=== PATIENT | female | born 1985 | race Caucasian/White ===

== ENCOUNTER 2016-10-29 14:15 | Observation (INO) | payer BC ==
[2016-10-29 15:10] LABS: COLOR PALE YELLOW; LEUKOCYTE ESTERASE,URINE NEGATIVE (NEGATIVE); NITRITE,URINE NEGATIVE (NEGATIVE)
--- NOTE | 2016-10-29 15:28 | OBPROG ---
OBG Labor Progress Note Assessment/Plan: Assessment:continuous monitoring irregular contractions cat1 dry perineum no noted leaking of fluid not wearing a pad on admit objective amnisure negative nitrazine negative pooling negative ferning negative Plan:speculum exam ferning, pooling, nitrazine amnisure, ua and culture, hydrate orally. 10/29/16 15:22 Subjective: Comes in with complaint of leaking fluid . Feeling like I am peeing all the time. States feeling movement. Denies bleeding, denies cramping. - SVE Dilation (cm): 0 Effacement (%): Less than 50 Station: -3 - Physical Exam General Appearance: WD/WN, alert, no apparent distress Respiratory: chest non-tender, lungs clear, normal breath sounds Cardiac/Chest: regular rate, rhythm Abdomen: normal bowel sounds Extremities: normal range of motion DTR- Lower Extremities: Knee (R): 1+, Knee (L): 1+ (no clonus) Skin: normal color, warm/dry Neuro/Psych: no motor/sensory deficits, alert, normal mood/affect, oriented x 3 ICD10 Worksheet Patient Problems: Problems Problem Status Onset ro rom Acute
--- NOTE | 2016-10-29 15:59 | GHP ---
[f rep st] HISTORY AND PHYSICAL DATE OF ADMISSION: 10/29/2016 HISTORY OF PRESENT ILLNESS: The patient is a 31-year-old, 2, para 1, with an EDC of 017, who comes in today with complaint of leaking fluid. "I don't know if I'm peeing myself, I don' t know what happened, so we felt we should just come in." States the baby is moving. Denies bleedi ng. Denies cramping. The patient was a late transfer of care at 23+ [address] to [facility] and has been routinely seen since then. MEDICAL HISTORY: History of pyelonephritis, chronic renal disease, right kidney was not working wel l between ages of 18 and 19, a right bad knee. PREVIOUS HISTORY: On 12/17/2014, a male, 8 pounds, 8 ounces, 41 weeks, 10 hours of labor vaginally. The patient had an epidural. GYNECOLOGICAL HISTORY: History of OCP use. History of a previous yeast infection. FAMILY HISTORY: Noncontributory. SOCIAL HISTORY: Patient is , has another child. A nonsmoker and denies drug use. PRESENT HISTORY: Complaint of possible rupture of membranes today, or maybe "I peed mysel f," per patient. PHYSICAL EXAMINATION: GENERAL: The patient is awake, alert, oriented x3. LUNGS: Clear bilaterall y. ABDOMEN: Bowel sounds are positive in all 4 quadrants. EXTREMITIES: DTRs are 1+ bilaterally. Homans sign is negative bilaterally. GENITOURINARY: On palpation, uterus is soft. Contractions a re noted irregularly on the monitor. With examination of perineum, no fluid is noted. Speculum exa m, no pooling, negative Nitrazine, negative ferning. AmniSure was sent with a negative result. PLAN OF CARE: Discharge to home with followup in the office. Patient understands plan of care. Wi th leaking, bleeding, cramping, patient will return for reassessment. The patient was also given a liter of fluid and contractions went away while monitoring. The patient verbalized understanding of discharge instructions and will return for planned appointment with [facility]. /[id number]/MODL
== END 2016-10-29 15:30 | disposition home or self-care (01) ==
LOC: FLD 14:15
PROVIDERS: ADMIT Advanced Practice Midwife; ATTEND Advanced Practice Midwife
DX: Z03.89 Encounter for observation for other suspected diseases and conditions ruled out (principal); Z3A.32 32 weeks gestation of pregnancy
CPT/HCPCS: G0378 ×2

== ENCOUNTER 2016-11-17 17:54 | Observation (INO) | payer BC ==
[2016-11-17 18:01] VITALS: RESP 16
--- NOTE | 2016-11-17 18:11 | EDPHY ---
H & P Time Seen by Provider: 11/17/16 18:10 Smoking Status: Never smoked Constitutional: Initial Vital Signs Temperature (C) 36.4 C 11/17/16 17:56 Heart Rate 80 11/17/16 17:56 Respiratory Rate 16 11/17/16 17:56 Blood Pressure 114/78 11/17/16 17:56 O2 Sat (%) 97 11/17/16 17:56 O2 Delivery Mode Room Air Allergies/Adverse Reactions: No Known Allergies Allergy (Verified 11/17/16 17:56) Home Medications: Medication Instructions Recorded NK [No Known Home Meds] 11/17/16 MDM/Departure - Depart Referrals: Subha Rincon CNM [Primary Care Provider] - As per Instructions
[2016-11-17 19:10] VITALS: PULSE 88
[2016-11-17 19:13] VITALS: BP 130/69; TEMP 97.7; O2SAT 98
--- NOTE | 2016-11-17 19:17 | EDPHY ---
H & P Stated Complaint: fell in shower/twisting r knee pt is 8months / Source: Patient Exam Limitations: No limitations - Personal History LMP (Females 10-55): Current Tetanus/Diphtheria Vaccine: Yes - Medical/Surgical History Hx Asthma: No Hx Chronic Respiratory Disease: No Hx Diabetes: No Hx Cardiac Disease: No Hx Renal Disease: No Hx Cirrhosis: No Hx Alcoholism: No Hx HIV/AIDS: No Hx Splenectomy or Spleen Trauma: No Other PMH: NONE - Social History Smoking Status: Never smoked <Tierra Griffin - Last Filed: 11/17/16 21:17> <Mima Jorgensen - Last Filed: 11/17/16 23:36> Time Seen by Provider: 11/17/16 18:10 HPI/ROS: CHIEF COMPLAINT: slip and fall HISTORY OF PRESENT ILLNESS: 31-year-old female presents emergency department after she slipped and fell while taking a shower at the swimming pool holding her 2-year-old son. Patient is 8 months . She reports she twisted her right knee and landed on the right side of her abdomen. She reports she has been unable to bear weight on this knee due to pain, she denies abdominal pain though is concerned she does not feel much movement. She denies vaginal bleeding. Patient denies head strike, no neck pain, no other complaints. Patient reports previous ligamentous injury to this right knee a few years ago. REVIEW OF SYSTEMS: A comprehensive 10 point review of systems is otherwise negative aside from elements mentioned in the history of present illness. (Tierra Griffin) - Physical Exam Exam: Physical Exam Gen: Alert and Oriented, NAD HEENT: PERRL, moist mucous membranes NECK: no meningismus CV: regular rate and regular rhythm PULM: CTAB, no wheezes ABDOMEN: Gravid uterus, nontender, no ecchymosis, heart tones 144 BACK: No CVA tenderness NEURO: Neurologically grossly intact EXTREMITIES: Right knee with diffuse effusion, positive Sheela's, positive anterior drawer, 2+ pedal pulses, sensation intact to light touch SKIN: no rash or break in skin on exposed skin PSYCH: answers questions appropriately. (Tierra Griffin) Constitutional: Initial Vital Signs Temperature (C) 36.4 C 11/17/16 17:56 Heart Rate 80 11/17/16 17:56 Respiratory Rate 16 11/17/16 17:56 Blood Pressure 114/78 11/17/16 17:56 O2 Sat (%) 97 11/17/16 17:56 O2 Delivery Mode Room Air Allergies/Adverse Reactions: No Known Allergies Allergy (Verified 11/17/16 17:56) Home Medications: Medication Instructions Recorded IRON 1 tab PO DAILY 11/17/16 1 tab PO DAILY 11/17/16 Medical Decision Making <Tierra Griffin - Last Filed: 11/17/16 21:17> <Mima Jorgensen - Last Filed: 11/17/16 23:36> - Diagnostics Imaging Results: Imaging Impressions Knee X-Ray 11/17/16 18:10 Impression: Negative for definite acute fracture. Findings suggest possible internal derangement with consideration for MR if symptoms persist. ED Course/Re-evaluation: heart tones are 144, patient has no vaginal bleeding, she has no abdominal pain. Right knee x-ray shows effusion, no acute fractures. Exam consistent with ACL tear. Patient has been placed in a knee immobilizer and given crutches, she is sent up to Labor and delivery for further OB monitoring. Dr. Jorgensen has performed a bedside ultrasound. (Tierra Griffin) Differential Diagnosis: The differential diagnosis for the patient's trauma included but was not limited to long bone and pelvic bone fractures, spinal injury, intra-abdominal injury, and intra-thoracic injury. (Tierra Griffin) Other Provider: The patient was initially seen and evaluated by PA with the complaint of Knee pain. Patient slipped in the shower and injured her knee. Of concern, the patient is 8 months and also fell onto her abdomen.. Please see their dictation for complete details. I reviewed the database, medical/surgical history, and ED course. Procedure: A limited transabdominal ultrasound was performed on this patient. The indication for the study was blunt abdominal trauma in a patient greater than 20 weeks . On the examination I found that there was a single living IUP with good cardiac activity, rate in the 140s, and positive movement. I did not see a significant amount of free fluid in the pelvis. Results of the exam: Single living 8 months gestation status post blunt trauma to the abdomen. Images were saved on the ultrasound database. The examination was performed and interpreted by myself. The midlevel and I discussed the care, treatment, and disposition of the patient. Patient's knee x-ray demonstrated significant effusion. She was transferred to Labor and delivery for monitoring of her . Please see the discharge instructions with regard information regarding her knee injury. ( Mima Jorgensen) Departure <Tierra Griffin - Last Filed: 11/17/16 21:17> <Mima Jorgensen - Last Filed: 11/17/16 23:36> - Departure Disposition: Home, Routine, Self-Care Clinical Impression: Traumatic injury during in third trimester Right knee sprain Qualifiers: Encounter type: initial encounter Involved ligament of knee: anterior cruciate ligament Qualified Code(s): S83.511A - Sprain of anterior cruciate ligament of right knee, initial encounter Condition: Good Report Scribed for: Mima Jorgensen Report Scribed by: Deisy Bennett Date of Report: 11/17/16 Time of Report: 21:24 <Mima Jorgensen - Last Filed: 11/17/16 23:36>
[2016-11-17] MEDS ORDERED: HYDROCODONE/APAP 5/325 TAB PO ONE (19:53)
--- NOTE | 2016-11-17 20:42 | GHP ---
[f rep st] HISTORY AND PHYSICAL DATE OF ADMISSION: 11/17/2016 ADMISSION DIAGNOSIS: 1. Intrauterine at 34 and 6/7th weeks gestation. 2. Fall. HISTORY OF PRESENT ILLNESS: The patient is a 31-year-old 2, para 1-0-0-1, who is 34 and 6/7 th weeks gestation. She was at the pool with her toddler and slipped in the shower and landed on he r arm, twisted her knee and hit her abdomen. The patient was evaluated in the emergency room for th e knee and it was put in a brace. Her pain overall is controlled; however, she is uncomfortable. S he denies feeling any abdominal pain. She denies any loss of fluid or vaginal bleeding. There is g ood movement. Her abdomen is gravid, nontender. Extremities reveal no calf tenderness. She does have her right leg in a brace. status is category 1. She is not having any contractions . LABORATORY DATA: Her blood type is AB positive. A Kleihauer-Betke was drawn. PLAN: The patient will be monitored for the next 6 to 8 hours, longer if indicated. Her abdomen is gravid, but nontender. We discussed labor precautions, precautions, kick counts and abrupt ion precautions. The patient has a followup appointment in our office next week. She will also be given a prescription for a few Buchtel tablets in case her knee pain significantly increases as she is not a candidate to take ibuprofen. /[id number]/MODL
[2016-11-17] MEDS ORDERED: HYDROCODONE/APAP 5/325 TAB PO PRN (22:23)
== END 2016-11-18 00:40 | disposition home or self-care (01) ==
LOC: FLD 19:15
PROVIDERS: ADMIT Obstetrics & Gynecology; ATTEND Obstetrics & Gynecology
DX: O9A.213 Injury, poisoning and certain other consequences of external causes complicating pregnancy, third trimester (principal); S83.511A Sprain of anterior cruciate ligament of right knee, initial encounter; Z3A.34 34 weeks gestation of pregnancy; W01.0XXA Fall on same level from slipping, tripping and stumbling without subsequent striking against object, initial encounter; Y93.E1 Activity, personal bathing and showering; Y92.34 Swimming pool (public) as the place of occurrence of the external cause
CPT/HCPCS: 29505; 73564; 99285; G0378; L1830

== ENCOUNTER 2016-12-01 14:10 | Observation (INO) | payer BC ==
[2016-12-01] MEDS ORDERED: LR 1,000 ML IV PRN (15:20)
[2016-12-01] MEDS ORDERED: OXYTOCIN/RINGERS LACTATE 1,000 ML IV PRN (15:20)
[2016-12-01] MEDS ORDERED: EPSOM SALT 454 GM TP PRN (15:20)
[2016-12-01] MEDS ORDERED: TERBUTALINE SULFATE 1 MG/ML VIAL IV PRN (15:20)
[2016-12-01] MEDS ORDERED: IBUPROFEN 600 MG TAB PO PRN (15:20)
[2016-12-01] MEDS ORDERED: OLIVE OIL 118 ML BTL MISC PRN (15:20)
--- NOTE | 2016-12-01 18:43 | GHP ---
[f rep st] PREOP HISTORY AND PHYSICAL DATE OF ADMISSION: 12/01/2016 OBSERVATION NOTE PRESENTATION DIAGNOSIS: Intrauterine at 36 and 5/7 weeks' gestation with contractions. HISTORY OF PRESENT ILLNESS: The patient is a 31-year-old 2, para 1-0-0-1, with an unsure la st menstrual period but an EDC of 12/24/2016, which was confirmed by a 13-week ultrasound. She has had good care at [facility] since transfer at 23 weeks. She moved from [facility], and she has no significant risk factors. The patient began feeling increased contrac tions over the course of the day on the . They developed into a regular pattern, every 3-4 minut es, were increasing in intensity, and mostly in her back, and she needed to walk through them. She denied leakage of fluid, vaginal bleeding, and she had good movement. When she presented to [facility] and Delivery, heart tones were at 130s, reactive, moderate variability, category 1. She was aidan every 2-3 minutes. Initial cervical exam was fingertip, 50%, very high, and posteri or. The patient was given aggressive p.o. hydration and careful monitoring, and hydrotherapy. Over several hours, cervical exam did not change. Contractions have slowly decreased in intensity; timmons layla, they have not completely resolved. She has had no further cervical change, no vaginal bleeding or leakage of fluid, and monitoring has been reactive, category 1, and reassuring during her entire stay. PAST OBSTETRICAL HISTORY: In November 2014, she had a vaginal delivery of a viable male, 8 pounds 8 oun bridget, at 41 weeks' gestation. She did say she developed some contractions during that pregna ncy, but they resolved and she was induced at postterm. She has no significant past gynecological h istory. She does have a shortened cycle, menarche at age 60, interval of 21 days, cycles lasting 3- 4 days, and was an unsure last menstrual, but this was confirmed by ultrasound. PAST MEDICAL HISTORY: She has had a history of pyelonephritis and was hospitalized for this at ages [age]. No other past medical history. PAST SURGICAL HISTORY: None. ALLERGIES: No known drug allergies. MEDICATIONS: Her only medications include vitamins and iron. LABS: She is AB positive. Antibody negative. RPR nonreactive. Rubella immune. Hepatitis negativ e. HIV negative. Pap normal. Gonorrhea and chlamydia normal. 1-hour GTT 117. Quad screen was no rmal. GBS is pending at this time. SOCIAL HISTORY: She is . She lives with her . They are both from [facility]. She is a [id number] mom currently. She denies tobacco, alcohol, and drug use. FAMILY HISTORY: Her mother of a myocardial infarction, and she had depression and alcoholism. Paternal grandfather had Alzheimer's. REVIEW OF SYSTEMS: Today is negative for all other systems, except as reported above. OBJECTIVE: VITAL SIGNS: She is afebrile. Vital signs are stable. heart tones are 130s, chio ctive, moderate variability, category 1. Contractions have decreased now, they are every 5-8 minute s, and cervical exam is unchanged, fingertip, 80%, -3, and posterior. ASSESSMENT AND PLAN: A 31-year-old 2, para 1-0-0-1 at 36 and 5/7 weeks' gestation with pret erm contractions. No evidence of active labor with cervical change. The patient will be discharged home with instructions to rest and hydrate and to call if contractions worsen. /[id number]/MODL
== END 2016-12-01 15:55 | disposition home or self-care (01) ==
LOC: FLD 14:10
PROVIDERS: ADMIT Obstetrics & Gynecology; ATTEND Obstetrics & Gynecology
DX: Z34.83 Encounter for supervision of other normal pregnancy, third trimester (principal)
CPT/HCPCS: G0378

== ENCOUNTER 2016-12-29 18:00 | Inpatient (IN) | payer BC ==
[2016-12-29] MEDS ORDERED: TERBUTALINE SULFATE 1 MG/ML VIAL IV PRN (18:59)
[2016-12-29] MEDS ORDERED: OXYTOCIN/RINGERS LACTATE 1,000 ML IV PRN (18:59)
[2016-12-29] MEDS ORDERED: EPSOM SALT 454 GM TP PRN (18:59)
[2016-12-29] MEDS ORDERED: OLIVE OIL 118 ML BTL MISC PRN (18:59)
[2016-12-29] MEDS ORDERED: LR 1,000 ML IV PRN (18:59)
[2016-12-29] MEDS ORDERED: PROMETHAZINE HCL 25 MG/ML INJ IV ONE (19:00)
[2016-12-29 19:17] LABS: ABSOLUTE IMMATURE GRANULOCYTES 0.22 10^3/uL (0.00-0.10); ADD DIFF? NO; ADD MORPH? NO; ADD SCAN? NO; ATYPICAL LYMPHOCYTE FLAG 10 (0-99); FRAGMENT RBC FLAG 0 (0-99); HEMATOCRIT 39.3 % (38.0-47.0); HEMOGLOBIN 13.6 g/dL (12.6-16.3); LEFT SHIFT FLG 0 (0-99); LIPEMIA HEMOLYSIS FLAG 90 (0-99); MEAN CELL HEMOGLOBIN 31.1 pg (27.9-34.1); MEAN CELL HEMOGLOBIN CONCENTR. 34.6 g/dL (32.4-36.7); MEAN CELL VOLUME 89.9 fL (81.5-99.8); MEAN PLATELET VOLUME 11.4 fL (8.7-11.7); PLATELET CLUMPS FLAG 0 (0-99); PLATELET COUNT 172 10^3/uL (150-400); RED BLOOD CELL COUNT 4.37 10^6/uL (4.18-5.33); RED CELL DISTRIBUTION WIDTH 13.2 % (11.5-15.2)
[2016-12-29] MEDS ORDERED: fentaNYL 2MCG/ML/BUP 0.1% RTU 100 ML BAG EP ONE (19:48)
[2016-12-29] MEDS ORDERED: BUPIVACAINE 0.25% 30 ML SDV ONE (19:49)
[2016-12-29] MEDS ORDERED: PHENYLEPHRINE HCL 100 MCG/ML SYR ONE (19:49)
[2016-12-29] MEDS ORDERED: NALOXONE HCL 0.4 MG/ML INJ IVP PRN (20:16)
[2016-12-29] MEDS ORDERED: PHENYLEPHRINE HCL 100 MCG/ML SYR IVP PRN (20:16)
[2016-12-29] MEDS ORDERED: ONDANSETRON 4 MG/2 ML VIAL IVP PRN (20:16)
--- NOTE | 2016-12-29 20:16 | PDANEPAE ---
ANE History of Present Illness active labor for FESTUS ANE Past Medical History Past Medical History: none - Pulmonary History Hx Oxygen in Use at Home: No Hx Sleep Apnea: No - Endocrine History Hx Diabetes: No ANE Review of Systems Review of systems is: negative - Exercise capacity Exercise capacity: >=4 METS ANE Patient History - Allergies Allergies/Adverse Reactions: No Known Allergies Allergy (Verified 11/17/16 17:56) - Home Medications Home medications: home medication list seen and reviewed Home Medications: IRON 1 tab PO DAILY 11/17/16 [Last Taken 11/17/16] 1 tab PO DAILY 11/17/16 [Last Taken 11/17/16] - Anes Hx Anes Hx: no prior problems - Smoking Hx Smoking Status: Never smoked - Family Anes Hx Family Anes Hx: none ANE Labs/Vital Signs - Labs Result Diagrams: 12/29/16 19:10 ANE Physical Exam - Airway Neck exam: FROM Mallampati Score: Class 2 Mouth exam: normal dental/mouth exam - Pulmonary Pulmonary: no respiratory distress - Cardiovascular Cardiovascular: regular rate and rhythym - ASA Status ASA Status: II ANE Anesthesia Plan Anesthesia Plan: epidural Urgent/Emergent Case: Anedereje haro completed preop but documented later for safe timely pt care
[2016-12-29] MEDS ORDERED: LR 500 ML IV SCH (20:30)
[2016-12-29] MEDS ORDERED: fentaNYL 2MCG/ML/BUP 0.1% RTU 100 ML EP SCH (20:30)
[2016-12-29] MEDS ORDERED: OLIVE OIL 118 ML BTL ONE (21:24)
[2016-12-29] MEDS ORDERED: LIDOCAINE 1% 300 MG/30 ML SDV ONE (21:24)
[2016-12-29] MEDS ORDERED: AMMONIA AROMATIC 1 EACH AMP IH ONE (21:24)
[2016-12-29] MEDS ORDERED: MISOPROSTOL 200 MCG TAB ONE (21:25)
[2016-12-29] MEDS ORDERED: OXYTOCIN 10 UNIT/ML VIAL ONE (21:25)
[2016-12-29] MEDS ORDERED: TERBUTALINE SULFATE 1 MG/ML VIAL ONE (21:25)
--- NOTE | 2016-12-30 00:13 | OBPROG ---
OBG Labor Progress Note Assessment/Plan: Assessment: 31 y/o @ 41 wks in active labor Plan: Continue expectant management AROM - mod amount blood tinged fluid FHTs - Cat II strip with intermittent variable decels Will cont to closely monitor strip Anticipate 12/30/16 00:07 Subjective: Pt is comfortable, s/p epidural. Objective: 12/29/16 19:10 Patient ABO/Rh AB POSITIVE 12/29/16 19:10 - SVE Dilation (cm): 9 Effacement (%): 100 Station: +1 Rodriguez FHR (bpm): 140 FHR Pattern Variability: Moderate FHR Category: 2 (Intermittent variable decels) Membranes: SROM Amniotic Fluid Color: Bloody - Procedures Non-surgical Procedures: Amniotomy Oxytocin Orders Assessment - Pre-Induction/Augmentation Assessment Gestational Age: 40 week(s) and 5 day(s) ICD10 Worksheet Patient Problems: Problems Problem Status Onset Active labor at term Acute
--- NOTE | 2016-12-30 01:34 | GHP ---
[f rep st] HISTORY AND PHYSICAL DATE OF ADMISSION: 12/29/2016 ADMITTING DIAGNOSES: 1. Intrauterine at 40 weeks and 6 days. 2. Active labor. HISTORY OF PRESENT ILLNESS: Patient is a 31-year-old, 2, para 1-0-0-1 at 40 weeks and 6 days with an estimated due date 12/24/2016 by a 13-week ultrasound. The patient presents to Labor and Delivery with complaints of painful contractions for the last several hours. She states they are getting worse. No leakage of fluid or vaginal bleeding noted. States good movement. The patient does have good care at [facility]. She was a transfer of care at 23 weeks. She just moved here to [place] from [place]. is pretty much uncomplicated. The patient did develop anemia of and started iron. She received Tdap in the . GBS culture is negative. PAST OB HISTORY: In November 2014, she delivered a viable male at 41 weeks, weighing 8 pounds 8 ounces, vaginally. It was uncomplicated. 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 Cycles are every 21 days times 3-4 days. Last menstrual period unsure. Patient does not have a history of any abnormal Pap smears. Denies exposure to any sexually transmitted diseases. She did have a negative Pap test May 2015, as well as negative chlamydia/ gonorrhea cultures. PAST MEDICAL HISTORY: Pyelonephritis. PAST SURGICAL HISTORY: None. FAMILY HISTORY: Mother with depression. Paternal grandfather with Alzheimer disease. Maternal grandmother with breast cancer. Paternal aunt with breast cancer, at age 45. MEDICATIONS: Include vitamins and iron. ALLERGIES: No known drug allergies. SOCIAL HISTORY: She is . She is a homemaker. She lives with her and their son. Denies alcohol, tobacco, or illicit drug use. LABS: AB-positive, antibody negative. RPR nonreactive. Rubella immune. Hepatitis B surface antigen negative. HIV negative. Pap test, gonorrhea/chlamydia cultures all negative. Quad screen negative. H and H 11.9 and 34.9. One-hour Glucola 117. GBS negative. REVIEW OF SYSTEMS: 10-point review of systems is negative. Pertinent positives noted in HPI. EXAM: VITAL SIGNS: Stable. Patient is afebrile. GENERAL: Well-nourished, well-developed female, alert and oriented x3. No apparent distress. CARDIOVASCULAR: Regular rate and rhythm. LUNGS: Clear to auscultation bilaterally. ABDOMEN: Gravid, soft, nontender, nondistended. EXTREMITIES: Normal to inspection without calf tenderness or edema. PELVIC: On exam, she was found to be 2 cm dilated initially and 2 hours later changed to 4 cm/ 80% and -1 station. heart tones are Category 1 tracing, with a baseline 140 beats per minute. Positive accelerations. No decelerations. Moderate variability. On toco, she is aidan every 3-4 minutes. ASSESSMENT: Patient is a 31-year-old, 2, para 1-0-0-1, at 40 weeks and 6 days, who presents in active labor. 1. Admit to Labor and Delivery for expectant management. 2. Group B Strep culture is negative. No prophylactic antibiotics needed. 3. The patient requests an epidural, not much relief with the morphine that was given. 4. Anticipate a vaginal delivery. /[id number]/MODL MTDD
[2016-12-30] MEDS ORDERED: IBUPROFEN 600 MG TAB PO PRN (01:56)
[2016-12-30] MEDS ORDERED: HYDROCORTISONE 0.5% CREAM TP PRN (01:56)
[2016-12-30] MEDS ORDERED: SIMETHICONE 80 MG TAB CHEW PO PRN (01:56)
--- NOTE | 2016-12-30 02:00 | OBDEL ---
Info Type: Vaginal GBS+: No Indications for Delivery: Spontaneous Labor Vaginal Delivery - Labor and Delivery Onset of Contractions Date: 12/29/16 Onset of Contractions Time: 13:30 Onset of Contractions Type: Spontaneous Rupture of Membranes Date: 12/30/16 Rupture of Membranes Time: 00:15 Rupture of Membranes Type: Artificial Amniotic Fluid Color: Bloody Dilation Complete Date: 12/30/16 Dilation Complete Time: 01:15 Placenta Delivery Date: 12/30/16 Placenta Delivery Time: 01:40 Total Hours of Labor: 12 Non-surgical Procedures: Amniotomy Laceration: Other (Specify) (R vaginal wall) Repair: 3-0, Vicryl Vaginal Sponge Count Correct: Yes Vaginal Needle Count Correct: Yes Vaginal Sweep Performed: Yes EBL: 300cc Delivery Events: None [place] Data Rodriguez Delivery Date: 12/30/16 Delivery Time: 01:31 YONG: 12/24/16 Gestational Age: 40 week(s) and 6 day(s) Sex of : Male Score (1 Min): 8 Score (5 Min): 9 ICD10 Worksheet Patient Problems: Problems Problem Status Onset Active labor at term Acute (spontaneous vaginal delivery) Acute - ICD10 Problem Qualifiers (1) (spontaneous vaginal delivery)
[2016-12-30] MEDS: IBUPROFEN 600 MG TAB PO PRN ×4 (03:20→22:47)
[2016-12-30 09:28] VITALS: RESP 16
[2016-12-30] MEDS: DOCUSATE SODIUM 100 MG CAP PO PRN ×2 (10:08→20:32)
[2016-12-30] MEDS: HYDROCODONE/APAP 5/325 TAB PO PRN ×2 (15:17→20:32)
[2016-12-31] MEDS: IBUPROFEN 600 MG TAB PO PRN (06:02)
--- NOTE | 2016-12-31 10:55 | OBPP ---
Progress Note Assessment/Plan: Assessment: nipples intact ff@u scant rubra lochia pain well managed vs wnl perineum approximated voiding without difficulty Plan:dischagre to home with instructions fu 4 weeks and 6 weeks, discussed depression, pelvic rest, rest, contraception, pericare, , leeding patterns, ss infection, . Verbalized understanding of all discussed 12/31/16 10:52 Subjective: Doing well denies difficulties Objective: 12/29/16 19:10 Patient ABO/Rh AB POSITIVE 12/29/16 19:10 Temp Pulse Resp BP Pulse Ox 36.1 C 92 16 111/74 92 12/30/16 19:56 12/30/16 19:56 12/30/16 19:56 12/30/16 19:56 12/30/16 19:56 Physical Exam - Physical Exam General Appearance: WD/WN, alert, no apparent distress Extremities: normal range of motion, Megha's sign (negative bilaterally) DTR- Lower Extremities: Knee (R): 1+, Knee (L): 1+ (no clonus) Skin: normal color, warm/dry Neuro/Psych: no motor/sensory deficits, alert, normal mood/affect, oriented x 3
[2016-12-31 13:51] VITALS: BP 105/56; PULSE 60; TEMP 97.8; O2SAT 94
[2016-12-31] MEDS: HYDROCODONE/APAP 5/325 TAB PO PRN (14:40)
== END 2016-12-31 14:43 | disposition home or self-care (01) | DRG 775 ==
LOC: FLD 18:00 → OBSVTOIN 18:00 → FOB 12-30 03:42
PROVIDERS: ADMIT Obstetrics & Gynecology; ATTEND Obstetrics & Gynecology
PROC: 10E0XZZ Delivery of Products of Conception, External Approach (ICD-10-PCS; principal; 2016-12-30)
PROC: 10907ZC Drainage of Amniotic Fluid, Therapeutic from Products of Conception, Via Natural or Artificial Opening (ICD-10-PCS; principal; 2016-12-30)
DX: O48.0 Post-term pregnancy (principal); Z37.0 Single live birth; Z3A.40 40 weeks gestation of pregnancy
CPT/HCPCS: J2370; J2550; J2590; J3105

== ENCOUNTER 2018-04-03 13:06 | Emergency (ER) | payer BC ==
[2018-04-03] MEDS ORDERED: ONDANSETRON 4 MG/2 ML VIAL IVP ONE (13:56)
[2018-04-03] MEDS ORDERED: fentaNYL 100 MCG/2 ML INJ IVP ONE (13:56)
[2018-04-03 14:02] LABS: PLATELET COUNT 255 10^3/uL (150-400)
--- NOTE | 2018-04-03 14:10 | EDPHY ---
H & P Time Seen by Provider: 04/03/18 14:10 HPI/ROS: CHIEF COMPLAINT: Sudden onset severe low back pain HISTORY OF PRESENT ILLNESS: 33-year-old woman presents with sudden-onset severe low back pain which started at 12:30 p.m. At lunch. She was standing holding 1 of her children when she developed sudden onset severe low back pain centrally, worse with movement, making it very difficult for her to walk. Does not radiate. Not associated with fever or chills or urinary symptoms or weakness or numbness in legs. Does not radiate. REVIEW OF SYSTEMS: Eye: no change in vision ENT: no sore throat Cardiac: no chest pain or syncope Pulmonary: no cough or SOB Abdomen: no vomiting, diarrhea, abdominal pain Musculoskeletal: HPI Skin: no rash Neuro: no headache Constitutional: no fever : no urinary symptoms Injured her right great toe a few days ago, twisted her right knee a couple months ago A comprehensive 10 point review of systems is otherwise negative aside from elements mentioned in the history of present illness. PAST MEDICAL HISTORY: IUD Social history: Here with and 2 children General Appearance: Alert and conversant, cooperative. Eyes: No scleral icterus. ENT, Mouth: Normal mucous membranes. Respiratory: Normal respiratory effort, breath sounds equal, lungs are clear to auscultation. Cardiovascular: Regular rate and rhythm. Gastrointestinal: Abdomen is soft and non tender. Neurological: Alert, face symmetric, normal motor and sensory in extremities. Toes downgoing, no clonus, patellar reflexes 2+ symmetric bilaterally. Normal dorsiflexion and plantar flexion of both feet. Skin: Warm and dry, no rashes. Musculoskeletal: No midline spinal tenderness. She has paraspinal low lumbar tenderness at the sacral area. Pelvis is stable. Bruising around the right great toe and swelling which is present for couple of days. Psychiatric: Not agitated. Emergency Department course/MDM: Patient presents with severe sudden onset low back pain that likely is muscular soft tissue in nature. I think vascular problem or renal colic or spinal cord problem or infection is unlikely. Fentanyl 50, Zofran 4, lidocaine patch, Toradol 15 mg IV. Labs reviewed including WBC, normal chemistries, negative . 1520: Patient re-evaluated now is moving around spontaneously in the bed, feels like she is well enough to be discharged. Ambulatory. Plan for road test, discharge with symptomatic treatment if ambulatory, follow- up with [facility] her primary care provider. Smoking Status: Never smoked Constitutional: Initial Vital Signs Temperature (C) 36.7 C 04/03/18 13:10 Heart Rate 89 04/03/18 13:10 Respiratory Rate 20 04/03/18 13:10 Blood Pressure 95/64 L 04/03/18 13:10 O2 Sat (%) 100 04/03/18 13:10 O2 Delivery Mode Nasal Cannula O2 (L/minute) 1 Allergies/Adverse Reactions: No Known Allergies Allergy (Verified 11/17/16 17:56) Home Medications: Medication Instructions Recorded Lidocaine [Lidoderm] 1 each TP AD #5 adh..patch 04/03/18 oxyCODONE/APAP 5/325 [Percocet] 1 tab PO Q4-6PRN PRN #11 tab 04/03/18 Medical Decision Making - Data Points Laboratory Results: Laboratory Results 04/03/18 13:46 04/03/18 13:46 04/03/18 04/03/18 04/03/18 13:46 13:46 13:46 WBC 9.85 10^3/uL H 10^3/uL (3.80-9.50) RBC 4.30 10^6/uL 10^6/uL (4.18-5.33) Hgb 13.1 g/dL g/dL (12.6-16.3) Hct 38.1 % % (38.0-47.0) MCV 88.6 fL fL (81.5-99.8) MCH 30.5 pg pg (27.9-34.1) MCHC 34.4 g/dL g/dL (32.4-36.7) RDW 12.8 % % (11.5-15.2) Plt Count 255 10^3/uL 10^3/uL (150-400) MPV 9.9 fL fL (8.7-11.7) Neut % (Auto) 66.5 % % (39.3-74.2) Lymph % (Auto) 26.8 % % (15.0-45.0) [place] % (Auto) 4.3 % L % (4.5-13.0) Eos % (Auto) 1.6 % % (0.6-7.6) Baso % (Auto) 0.6 % % (0.3-1.7) Nucleat RBC Rel Count 0.0 % % (0.0-0.2) Absolute Neuts (auto) 6.55 10^3/uL H 10^3/uL (1.70-6.50) Absolute Lymphs (auto) 2.64 10^3/uL 10^3/uL (1.00-3.00) Absolute Monos (auto) 0.42 10^3/uL 10^3/uL (0.30-0.80) Absolute Eos (auto) 0.16 10^3/uL 10^3/uL (0.03-0.40) Absolute Basos (auto) 0.06 10^3/uL 10^3/uL (0.02-0.10) Absolute Nucleated RBC 0.00 10^3/uL 10^3/uL (0-0.01) Immature Gran % 0.2 % % (0.0-1.1) Immature Gran # 0.02 10^3/uL 10^3/uL (0.00-0.10) Sodium 140 mEq/L mEq/L (135-145) Potassium 4.1 mEq/L mEq/L (3.3-5.0) Chloride 105 mEq/L mEq/L (97-110) Carbon Dioxide 28 mEq/l mEq/l (22-31) Anion Gap 7 mEq/L mEq/L (6-14) BUN 17 mg/dL mg/dL (7-23) Creatinine 0.7 mg/dL mg/dL (0.6-1.0) Estimated GFR > 60 Glucose 101 mg/dL H mg/dL (70-100) Calcium 9.5 mg/dL mg/dL (8.5-10.4) Beta HCG, Qual NEGATIVE Medications Given: Discontinued Medications Fentanyl (Sublimaze) 50 mcg IVP EDNOW ONE Stop: 04/03/18 13:57 Last Admin: 04/03/18 13:59 Dose: 50 mcg Ketorolac Tromethamine (Toradol) 15 mg IVP EDNOW ONE Stop: 04/03/18 14:25 Last Admin: 04/03/18 14:37 Dose: 15 mg Miscellaneous Medication (Icy Hot Lidocaine/Menthol 4%/1% Patch) 1 patch TD EDNOW ONE Stop: 04/03/18 14:25 Last Admin: 04/03/18 14:38 Dose: 1 patch Ondansetron HCl (Zofran) 4 mg IVP EDNOW ONE Stop: 04/03/18 13:57 Last Admin: 04/03/18 13:59 Dose: 4 mg Departure - Departure Disposition: Home, Routine, Self-Care Clinical Impression: Acute low back pain Qualifiers: Back pain laterality: midline Sciatica presence: without sciatica Qualified Code(s): M54.5 - Low back pain Condition: Good Instructions: Acute Low Back Pain (ED) Additional Instructions: Oral ibuprofen 600 mg every 8 hr for the next 3 days. Referrals: Deloris Diamond MD [Primary Care Provider] - 5-7 days, call for appt. (Follow- up this week in the office of [facility] with Dr. Diamond or 1 of her colleagues.) Prescriptions: Lidocaine [Lidoderm] 1 each TP AD #5 adh..patch oxyCODONE/APAP 5/325 [Percocet] 1 tab PO Q4-6PRN PRN #11 tab PRN Reason: Pain
[2018-04-03] MEDS ORDERED: LIDOCAINE 4%/MENTHOL 1% PATCH TD ONE (14:24)
[2018-04-03] MEDS ORDERED: KETOROLAC 15 MG/1 ML SDV IVP ONE (14:24)
[2018-04-03 14:56] VITALS: BP 101/56
[2018-04-03] MEDS ORDERED: PATCH REMOVAL 1 EA PATCH TD SCH (21:00)
== END 2018-04-03 15:45 | disposition home or self-care (01) ==
DX: M54.5 Low back pain (principal); S90.111A Contusion of right great toe without damage to nail, initial encounter; X58.XXXA Exposure to other specified factors, initial encounter
CPT/HCPCS: 96374; J1885; J2405; J3010

== ENCOUNTER → 2018-04-07 | Outpatient (CLI) | payer BC | LOC: BMCIMAGING 11:17 | PROVIDERS: ATTEND Family Medicine | DX: M54.5 Low back pain (principal) ==